=== PATIENT | male | born 1980 | race Caucasian/White ===

== ENCOUNTER 2024-03-16 11:17 | Emergency (ER) | payer OTHER, SELFPAY ==
[2024-03-16 11:33] VITALS: BP 132/66; PULSE 75; RESP 16; TEMP 36.9; O2SAT 100
--- NOTE | 2024-03-16 11:55 | ED.WOUNDLAC ---
HPI - Wound/Laceration General Chief Complaint: Wound/Laceration Stated Complaint: L index finger lac Time Seen by Provider: 03/16/24 11:20 History of Present Illness HPI narrative: 43-year-old male presents with laceration to left index finger. 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 Patient states he cut his finger on a piece of metal. Patient is unsure when last tetanus. Patient denies any other complaints. Onset (ago): hour(s) (2) Related Data Allergies Allergy/AdvReac Type Severity Reaction Status Date / Time No Known Allergies Allergy Unverified 07/06/17 18:52 Review of Systems Review of Systems: A 10 system review of systems was completed on the patient and is negative except for what is stated in the HPI. Nursing and ancillary documentation was reviewed. Exam Narrative: GENERAL: Well-appearing, well-nourished, and in no acute distress. HEAD: Normocephalic, atraumatic. EYES: PERRLA and EOMI. ENT: Nares clear, no rhinorrhea or epistaxis. Mucous membranes moist. NECK: Supple. CHEST: Clear to auscultation. No respiratory distress. HEART: Regular rate and rhythm. No murmur heard. Normal peripheral pulses. ABDOMEN: Soft, nontender, nondistended, normal active bowel sounds. EXTREMITIES: Normal range of motion. No edema. SKIN: Warm, dry, no rash. Superficial laceration to mid dorsal aspect of left index finger no active bleeding NEURO: No focal deficits. Alert and oriented x3. PSYCH: Normal mood and affect. Course Vital Signs Vital signs: Vital Signs Temperature 36.9 C 03/16/24 11:33 Pulse Rate 75 03/16/24 11:33 Respiratory Rate 16 03/16/24 11:33 Blood Pressure 132/66 03/16/24 11:33 Pulse Oximetry 100 03/16/24 11:33 Oxygen Delivery Room Air 03/16/24 11:33 Temperature 36.9 C 03/16/24 11:33 Pulse Rate 75 03/16/24 11:33 Respiratory Rate 16 03/16/24 11:33 Blood Pressure 132/66 03/16/24 11:33 Pulse Oximetry 100 03/16/24 11:33 Oxygen Delivery Room Air 03/16/24 11:33 Procedures Laceration Laceration 1: Date: 03/16/24 Time: 12:19 Site: hand (Left index finger) Side (If applicable): left Size (cm): 1 Description: linear Depth: simple, single layer Local Anesthetic: none ====== Skin Level ====== Skin layer closed with: dermabond ====== Subcutaneous Layer ====== ====== Muscle Layer ====== ====== Tendon Layer ====== MDM - Wound/Laceration MDM Narrative Medical decision making narrative: Wound closed with Dermabond, tetanus updated Discharge Plan Discharge Clinical Impression: Laceration of blood vessel of left index finger Patient Disposition: Home, Self-Care Condition: Stable Instructions: Antibiotic Form, Skin Adhesive Care (ED) Additional Instructions: Return for signs of infection Kannan tape the 2nd and 3rd fingers for the next 3 days Follow-up/Referrals: UNKNOWN,DOCTOR [Primary Care Provider] - Time of Disposition: 12:21
[2024-03-16] MEDS: TETANUS,DIPHTHERIA,AC PERTUSSIS ADULT (0.5 ML) BOOSTRIX IM (12:11)
== END 2024-03-16 12:46 | disposition home or self-care (01) ==
PROVIDERS: Emergency Provider Nurse Practitioner Family
DX: S61.211A Laceration without foreign body of left index finger without damage to nail, initial encounter (principal); Z23 Encounter for immunization; W26.8XXA Contact with other sharp object(s), not elsewhere classified, initial encounter
CPT/HCPCS: 12001; 90471; 90715; 99282